=== PATIENT | female | born 1985 | race African-American/Black ===

== ENCOUNTER 2016-09-23 17:15 | Emergency (ER) | payer BC, OTHER ==
[2016-09-23] MEDS ORDERED: Morphine Sulfate 2 MG/ML SYRINGE ONE (17:49)
--- NOTE | 2016-09-23 20:34 | RAD ---
CHEST TWO VIEWS 09/23/16 The heart is normal in size. No infiltrate or effusion was seen. No vascular congestion or edema was present. There is no sign of pneumonia. The trachea is midline. IMPRESSION: No acute thoracic findings. POS: HOME
== END 2016-09-23 18:10 | disposition home or self-care (01) ==
LOC: BURERS 17:15
DX: J20.9 Acute bronchitis, unspecified (principal); I10 Essential (primary) hypertension; F17.210 Nicotine dependence, cigarettes, uncomplicated; Z79.899 Other long term (current) drug therapy
CPT/HCPCS: 71020; 96372; J2270

== ENCOUNTER 2016-10-17 19:27 | Emergency (ER) | payer SELFPAY ==
[2016-10-17 20:01] LABS: Blood, Urine Large (Negative); Glucose, Urine (Dipstick) Negative (Negative); Leukocyte Negative (Negative); Nitrite Negative (Negative); Protein, Urine (Dipstick) 100 mg/dL (Neg-Trace); pH, Urine 5.5 (5.0-9.0)
[2016-10-17 20:04] LABS: Bilirubin Negative (Negative); Clarity Cloudy (Clear)
[2016-10-17 20:05] LABS: Bacteria/HPF Rare-Few HPF (None Seen); Pregnancy Test - Urine (BHCG) Negative (Negative); Pregu Control Background? CLEAR/WHITE (CLR/WHITE); Pregu Control Bar Appear? YES (CONTROL BAR); RBC/HPF GREATER THAN 50-TNTC HPF (0-3); Squamous Epithelial 0-3 HPF (0-3); WBC/HPF 0-3 HPF (0-3)
== END 2016-10-17 20:21 | disposition home or self-care (01) ==
LOC: BURERS 19:27
DX: N94.6 Dysmenorrhea, unspecified (principal); I10 Essential (primary) hypertension
CPT/HCPCS: 81003; 81015; 81025; 99284

== ENCOUNTER 2017-02-26 03:11 | Emergency (ER) | payer SELFPAY ==
[2017-02-26] MEDS ORDERED: Benzonatate 100 MG CAP ONE (03:38)
[2017-02-26] MEDS ORDERED: Dexamethasone 4 mg/ml Vial ONE (03:38)
[2017-02-26] MEDS ORDERED: Bicillin CR 1.2 MILL UNITS/2 ML SYRINGE ONE (03:39)
== END 2017-02-26 03:45 | disposition home or self-care (01) ==
LOC: BURERS 03:11
DX: J02.9 Acute pharyngitis, unspecified (principal); I10 Essential (primary) hypertension; F41.9 Anxiety disorder, unspecified
CPT/HCPCS: 96372; J0558; J1100

== ENCOUNTER 2018-03-15 08:54 | Emergency (ER) | payer BC, SELFPAY ==
[2018-03-15] MEDS ORDERED: traMADol HCl 50 MG TAB ONE (09:44)
--- NOTE | 2018-03-15 15:41 | RAD ---
RIGHT KNEE 4 VIEWS: DATE: 03/15/2018. FINDINGS: Comparison is made with a 08/30/2014 study. No fracture, dislocation, or joint space narrowing was see n. A joint effusion is most likely present, however, and it may be large. Correlate with clinical e xam. Consider MRI if symptoms dictate further workup. IMPRESSION: No acute bony changes. Probable joint effusion. CODE T POS: HOME
== END 2018-03-15 09:56 | disposition home or self-care (01) ==
LOC: BURERS 08:54
DX: S83.8X1A Sprain of other specified parts of right knee, initial encounter (principal); I10 Essential (primary) hypertension; F17.200 Nicotine dependence, unspecified, uncomplicated; X50.1XXA Overexertion from prolonged static or awkward postures, initial encounter

== ENCOUNTER 2019-02-14 14:16 | Emergency (ER) | payer BC, SELFPAY ==
[2019-02-14 14:53] LABS: Pregu Control Background? CLEAR/WHITE (CLR/WHITE); Pregu Control Bar Appear? YES (CONTROL BAR); Specific Gravity 1.024 (1.002-1.036)
[2019-02-14 14:54] LABS: Pregnancy Test - Urine (BHCG) Negative (Negative)
[2019-02-14] MEDS ORDERED: Ketorolac Tromethamine 60 MG/2 ML VIAL ONE (15:14)
--- NOTE | 2019-02-14 21:58 | RAD ---
RIGHT KNEE FOUR VIEWS: Date: 02-14-19 FINDINGS: No fracture was seen, however, there is a large joint effusion. An internal derangement is possible. MRI could be useful in evaluating the knee further. There are some early degenerative changes in this knee consisting of slight medial joint space narrowing and small medial osteophytes. There is the be ginnings of some bony spurring on the back of the superior pole of the patella. IMPRESSION: 1. No fracture but large joint effusion present. Consider MRI. 2. Mild early degenerative changes in the medial compartment, somewhat unusual considering her age. Code T POS: HOME
--- NOTE | 2019-02-14 21:59 | RAD ---
PELVIS ONE VIEW: Date: 02-14-19 FINDINGS: No fracture was seen. The SI joints are symmetrical and the symphysis shows no widening or off set. E ach pubic ring appears intact. The hip joints are symmetrical. The visible accurate lines of the sacr um are intact. IMPRESSION: No acute bony findings. POS: HOME
== END 2019-02-14 15:55 | disposition home or self-care (01) ==
LOC: BURERS 14:16
DX: M25.561 Pain in right knee (principal); F17.200 Nicotine dependence, unspecified, uncomplicated; I10 Essential (primary) hypertension; Z79.899 Other long term (current) drug therapy
CPT/HCPCS: 72170; 81025; 96372; J1885

== ENCOUNTER 2019-06-01 20:54 | Emergency (ER) | payer BC, SELFPAY ==
--- NOTE | 2019-06-02 06:36 | RAD ---
LEFT LEG 2 VIEWS: Date: 06/01/2019 There is some reticulation of soft tissues in the leg indicating swelling. The tibia and fibula thems elves both appear normal. IMPRESSION: Soft tissue swelling, but no acute bony findings. POS: HOME
== END 2019-06-01 22:10 | disposition short-term general hospital (02) ==
LOC: BURERS 20:54
DX: M79.89 Other specified soft tissue disorders (principal); R79.1 Abnormal coagulation profile; I10 Essential (primary) hypertension
CPT/HCPCS: 85379

== ENCOUNTER 2020-08-06 12:51 | Emergency (ER) | payer OTHER, SELFPAY ==
[2020-08-06] MEDS ORDERED: Famotidine In NaCl 20 mg/50 ml Premix Bag ONE (13:08)
[2020-08-06] MEDS ORDERED: Ondansetron ODT 4 MG TAB ONE (13:08)
[2020-08-06 13:19] LABS: #Basophils 0.1 thou/uL (0.0-0.2); #Eosinphils 0.1 thou/uL (0.0-0.7); #Lymphocytes 2.2 thou/uL (1.20-3.40); #Monocytes 0.6 thou/uL (0.11-0.59); #Neutrophils 2.2 thou/uL (1.40-6.50); %Basophils 1.1 % (0.0-1.0); %Eosinophils 2.5 % (0.0-10.0); %Lymphocytes 42.8 % (21.0-51.0); %Neutrophils 42.6 % (42.0-75.0); Hemoglobin 11.6 g/dL (12.0-16.0); Mean Corpuscular HGB CONC 31.1 g/dL (32.0-36.0); Mean Corpuscular Hemoglobin 26.9 pg (27.0-31.0); Mean Corpuscular Volume 86.7 fL (78.0-98.0); Mean Platelet Volume 7.5 fL (7.4-10.4); Platelet Count 351 thou/uL (130-400); RBC Distribution Width 14.1 % (11.5-14.5); White Blood Cell (WBC) Count 5.2 thou/uL (4.8-10.8)
[2020-08-06 13:36] LABS: ALT (SGPT) 12 U/L (8-55); AST (SGOT) 14 U/L (5-34); Albumin 3.9 g/dL (3.5-5.0); Alcohol Less than 10 mg/dL (Less than 10); Alkaline Phosphatase 73 U/L (40-110); Anion Gap 15 mmol/L (10-20); BUN (Urea Nitrogen) 11 mg/dL (7.0-18.7); Bilirubin, Total 0.2 mg/dL (0.2-1.2); Calc. Creatinine Clearance 0 mL/min (70-130); Carbon Dioxide 27 mmol/L (22-29); Chloride 105 mmol/L (98-107); Globulin 3.9 g/dL (2.4-3.5); Glucose 99 mg/dL (70-105); Lipase 45 U/L (8-78); Potassium 3.8 mmol/L (3.5-5.1); Protein, Total 7.8 g/dL (6.0-8.3); Sodium 143 mmol/L (136-145)
== END 2020-08-06 14:03 | disposition home or self-care (01) ==
LOC: BURERS 12:51
DX: R11.2 Nausea with vomiting, unspecified (principal); I10 Essential (primary) hypertension; Z79.899 Other long term (current) drug therapy
CPT/HCPCS: 80053; 80307; 83690; 85025; 96365; Q0162

== ENCOUNTER 2020-09-17 20:20 | Emergency (ER) | payer SELFPAY ==
[2020-09-17] MEDS ORDERED: Sulfameth/Trimethoprim DS 800-160mg TAB ONE (20:39)
[2020-09-17] MEDS ORDERED: Dexamethasone 10 MG/ML VIAL ONE (20:39)
[2020-09-17] MEDS ORDERED: Benzonatate 100 MG CAP ONE (20:39)
== END 2020-09-17 20:38 | disposition home or self-care (01) ==
LOC: BURERS 20:20
DX: J01.90 Acute sinusitis, unspecified (principal); I10 Essential (primary) hypertension; Z79.899 Other long term (current) drug therapy
CPT/HCPCS: 99283; J1100

== ENCOUNTER 2021-01-23 11:18 | Emergency (ER) | payer OTHER, SELFPAY ==
[2021-01-23] MEDS ORDERED: Dexamethasone 10 MG/ML VIAL ONE (12:03)
== END 2021-01-23 12:17 | disposition home or self-care (01) ==
LOC: BURERS 11:18
DX: R09.81 Nasal congestion (principal); I10 Essential (primary) hypertension
CPT/HCPCS: 96372; 99281; J1100

== ENCOUNTER 2022-11-12 09:34 | Emergency (ER) | payer BC ==
[2022-11-12] MEDS ORDERED: Ibuprofen 800 MG TAB ONE (10:07)
== END 2022-11-12 10:49 | disposition home or self-care (01) ==
LOC: BURERS 09:34
DX: J02.9 Acute pharyngitis, unspecified (principal); I10 Essential (primary) hypertension; Z79.899 Other long term (current) drug therapy
CPT/HCPCS: 87081; 87430; 87804; 99283